=== PATIENT | male | born 1975 | race African-American/Black ===

== ENCOUNTER 2017-08-23 10:30 | Emergency (ER) | payer OTHER ==
[~2017-08-23] VITALS: Ht 167.6 cm; Wt 111.1 kg
[2017-08-23] MEDS ORDERED: IBUPROFEN 400 MG TAB PO ONE (12:15)
[2017-08-23 12:20] VITALS: BP 135/82
== END 2017-08-23 12:20 | disposition home or self-care (01) ==
LOC: FSED 10:30
DX: S93.401A Sprain of unspecified ligament of right ankle, initial encounter (principal); Y93.89 Activity, other specified; Y92.008 Other place in unspecified non-institutional (private) residence as the place of occurrence of the external cause
CPT/HCPCS: 99283